=== PATIENT | male | born 1985 | race Two or more races ===

== ENCOUNTER 2021-04-22 08:37 | Emergency (ER) | payer OTHER ==
[~2021-04-22] VITALS: Ht 175.3 cm; Wt 84.8 kg
[2021-04-22 09:04] LABS: Urine Bacteria NONE SEEN /hpf (None Seen); Urine Blood Negative /uL (Negative); Urine Specific Gravity 1.005 (1.001-1.035); Urine WBC <1 /hpf (0 - 3)
[2021-04-22 09:36] VITALS: BP 99/74
== END 2021-04-22 10:56 | disposition home or self-care (01) ==
LOC: ER 08:37
DX: Z04.1 Encounter for examination and observation following transport accident (principal); F84.5 Asperger's syndrome; V43.62XA Car passenger injured in collision with other type car in traffic accident, initial encounter; Y93.89 Activity, other specified; Y92.410 Unspecified street and highway as the place of occurrence of the external cause; Y99.8 Other external cause status
CPT/HCPCS: 81001